=== PATIENT | female | born 1960 | race Caucasian/White ===

== ENCOUNTER 2022-08-17 17:42 | Emergency (ER) | payer OTHER ==
[2022-08-17 17:52] VITALS: TEMP 98.4
--- NOTE | 2022-08-17 17:53 | ED ---
Extremity Problem HPI - General Stated complaint: rt ankle fx Time Seen by Provider: 08/17/22 17:45 Source: patient, EMS, RN notes reviewed Mode of arrival: EMS - History of Present Illness Initial comments: 61-year-old female with a prior history of bilateral ankle fractures at various times in her life from sports injuries who states she was up in a car when she rolled her ankle and sustained an injury to the ankle. She is unable weight- bear. She states pain was 4/10 severity she did not fall and no other injuries reported nothing above the ankle no knee pain. Pain. She was brought in by EMS. She did decline pain medications at that time and at this time also. Per paramedics she does have evidence of a deformity of the ankle. No other complaints or modifying factors no reports of sensory motor or vascular deficits MD Complaint: extremity pain, extremity swelling, joint pain - Related Data Allergies Allergy/AdvReac Type Severity Reaction Status Date / Time No Known Allergies Allergy Verified 08/17/22 17:52 Review of Systems ROS Statement: Those systems with pertinent positive or pertinent negative responses have been documented in the HPI. ROS Other: All systems not noted in ROS Statement are negative. General Exam - General Exam Comments Initial Comments: This is a well-developed well-nourished awake alert oriented 4 female General appearance: alert, in no apparent distress Head exam: Present: atraumatic, normocephalic, normal inspection Eye exam: Present: normal appearance, PERRL, EOMI. Absent: scleral icterus, conjunctival injection, periorbital swelling ENT exam: Present: normal exam, mucous membranes moist Neck exam: Present: normal inspection. Absent: tenderness, meningismus, lymphadenopathy Respiratory exam: Present: normal lung sounds bilaterally. Absent: respiratory distress, wheezes, rales, rhonchi, stridor Cardiovascular Exam: Present: regular rate, normal rhythm, normal heart sounds. Absent: systolic murmur, diastolic murmur, rubs, gallop, clicks GI/Abdominal exam: Absent: distended, tenderness, guarding, rebound, rigid Extremities exam: Present: tenderness, normal capillary refill, other (Evidence of edema with suspected deformity of the right ankle she does have a toe ring on the second toe which will be removed. Capillary refills less than 2 seconds. No sensory deficits. No evidence of any vascular deficits at this time.). Absent: pedal edema, joint swelling, calf tenderness Back exam: Present: normal inspection Neurological exam: Present: alert, oriented X3, CN II-XII intact Psychiatric exam: Present: normal affect, normal mood Skin exam: Present: warm, dry, intact, normal color. Absent: rash Course Vital Signs 08/17/22 08/17/22 17:45 19:36 Temperature 98.4 F Pulse Rate 83 94 Respiratory 16 12 Rate Blood Pressure 197/125 165/90 O2 Sat by Pulse 98 98 Oximetry - Reevaluation(s) Reevaluation #1: 08/17/22 18:54 I spoke applied. Patient is requesting pain medication at this time she does not want any narcotic. Reevaluation #2: 08/17/22 19:16 Patient was offered pain medication and moderate sedation which she has refused. Reevaluation #3: 08/17/22 20:01 Post-splint x-ray appears be consistent with the earlier one. Patient is feeling better good neurovascular exam. Procedures - Orthopedic Splinting/Casting Injury #1 Side: right Lower Extremity Injury Location: short leg, ankle Lower Extremity Immobilizer: posterior splint, stirrup splint Other Orthopedic Equipment: other Additional Comments: The patient tolerated the procedure well she declined further pain medication or sedation. A common patient posterior stirrup splint was placed with copious padding. Patient had good neurovascular exam afterwards. She states she does feel improved as far as pain. She'll be referred to [facility] patient does have crutches at home. She is to be nonweightbearing at this time. She will only take Tylenol for pain. Medical Decision Making - Medical Decision Making Patient was placed in a posterior and stirrup splint with anterior pressure to try to reduce the sublux. Patient states she had improvement in pain after the manipulation. Patient be discharged to follow-up with orthopedics tomorrow. She does have crutches at home. She was taken out of her pain. She did agree with ice and elevation. - Radiology Data Radiology results: report reviewed (Imaging reviewed as well as report bimalleolar fracture with posterior subluxation.), image reviewed Disposition Clinical Impression: Fracture of ankle, Fracture dislocation of right ankle Disposition: HOME SELF-CARE Condition: Good Instructions (If sedation given, give patient instructions): Ankle Fracture (ED), Ankle Dislocation (ED) Additional Instructions: Crutches to not bear weight on the right foot and ankle. Elevation and ice as discussed. Is patient prescribed a controlled substance at d/c from ED?: No Referrals: RINA STEWART DO [Primary Care Provider] - 1-2 days Lino Bueno DO [Doctor of Osteopathic Medicine] - 1-2 days Decision Date: 08/17/22 Decision Time: 20:02
--- NOTE | 2022-08-17 18:16 | XR ---
EXAMINATION TYPE: XR ankle complete RT DATE OF EXAM: 08/17/2022 COMPARISON: NONE HISTORY: Ankle pain TECHNIQUE: Review is FINDINGS: There is oblique fracture distal fibula. There is soft tissue swelling around the lateral a nkle. There is a large chip fracture of the posterior malleolus that measures 2.5 x 1 cm. There is mi ld posterior displacement of the talus on the lateral view. There is plantar calcaneal spurring. IMPRESSION: There is fracture of the lateral and posterior malleolus. There is partial posterior disl ocation of the talus.
[2022-08-17] MEDS ORDERED: KETOROLAC 15 MG/ML 1 ML VIAL IVP STA (18:41)
[2022-08-17 19:37] VITALS: BP 165/90; PULSE 94; RESP 12
--- NOTE | 2022-08-17 20:15 | XR ---
EXAMINATION TYPE: XR ankle limited RT DATE OF EXAM: 08/17/2022 COMPARISON: NONE HISTORY: Reduction TECHNIQUE: 2 views FINDINGS: There is large chip fracture of the posterior malleolus with impaction. Fragment measures 3 .5 x 2 cm. There is posterior mild displacement of the talus. There is oblique fracture of the distal fibula. IMPRESSION: There is persistent partial posterior dislocation of the talus. There is large impacted c hip fracture of the posterior malleolus.
== END 2022-08-17 20:47 | disposition home or self-care (01) ==
LOC: EC 17:42
DX: S82.891A Other fracture of right lower leg, initial encounter for closed fracture (principal); X58.XXXA Exposure to other specified factors, initial encounter; Y93.A3 Activity, aerobic and step exercise; Y92.810 Car as the place of occurrence of the external cause
CPT/HCPCS: 29515 ×2; 99283 ×2; 96374 ×2; 73600; 73610; J1885; 27840